=== PATIENT | male | born 1970 | race Caucasian/White ===

== ENCOUNTER 2016-06-27 11:42 | Day surgery (SDC) | payer OTHER ==
[2016-06-22 09:13] LABS: HEMOGLOBIN 14.2 g/dL (13.6-17.8)
--- NOTE | ~2016-06-27 | OP ---
Record Of Operation [facility] [address] [place]. [address] NAME: KOLTON CUNNINGHAM : 68 STATUS : [facility] UNIT#: [id number] AGE: 45 ADM/REG DATE : 06/27/16 MR#: [id number] REPORT SERV DATE: 06/27/16 DICTATED BY: Bambi TYLER DATE: 06/27/16 REPORT STATUS : Draft TRANSCRIBED BY: [employer] DATE: 06/27/16 DATE OF PROCEDURE: 06/27/2016 PREOPERATIVE DIAGNOSES: 1. Basal cell carcinoma of the left upper forehead. 2. Lesion of the right malar cheek, uncertain behavior, rule out atypia. 3. Lesion of the right religion, uncertain behavior, rule out atypia. POSTOPERATIVE DIAGNOSES: 1. Basal cell carcinoma of the left upper forehead. 2. Actinic keratosis with severe dysplasia, right malar cheek. 3. Actinic keratosis, right religion. PROCEDURE: 1. Excision of left upper forehead basal cell carcinoma with frozen section. 2. Reconstruction of left upper forehead defect with rotation flap closure. 3. Shaved excisional biopsy of right malar cheek lesion. 4. Shaved excisional biopsy of right religion lesion. FINDINGS: Left upper forehead 5 mm tall x 9 mm wide lesion requiring an 8 mm tall x 5 cm wide fusiform ellipse; frozen section showed margins free of tumor for left upper forehead; right malar cheek 4 mm crusted flat lesion; right religion 5 mm x 2 mm x 1 mm raised rough lesion. INDICATIONS: This is a 45-year-old gentleman has a biopsy-proven basal cell carcinoma of the left upper forehead. The pros and cons, alternatives, benefits, risks, limitations, and complications of excision with frozen section and reconstruction were discussed at length with the patient. He prefers general anesthesia over having this done in the office. We discussed the risks of scarring, reaction to suture, abnormal raising of the eyebrow, infection, recurrence of tumor, imponderables. He understands and wishes to proceed. Preoperatively, he also pointed out two lesions on the right side of his face, the right malar cheek and right religion which he is concerned about since they have been rough and irritated. We also plan to shave excise these with frozen section and do further excision and repair if cancerous. He understands and wishes to proceed. Proper consent obtained. No guarantees expressed. DESCRIPTION OF PROCEDURE: He was taken into the operating room and given general oral endotracheal anesthesia in the supine position. His face was prepped with Hibiclens and saline followed by isopropyl alcohol. None of these solutions got in his eyes. The sterile drapes were applied. The wrinkles on the left forehead were marked with a marking pen and then the lesion of the left upper forehead was marked out with a marking pen and then a 2.5 mm margin of safety around this was marked out. A long fusiform ellipse was then created to encompass this lesion with margins, following paralleling the natural skin creases in the forehead. The right malar cheek lesion and the right religion lesion measured as stated above. There Record Of Operation [facility] [address] [facility] [place]. [address] NAME: KOLTON CUNNINGHAM : 68 STATUS : [facility] UNIT#: [id number] AGE: 45 ADM/REG DATE : 06/27/16 MR#: [id number] REPORT SERV DATE: 06/27/16 DICTATED BY: Bambi TYLER DATE: 06/27/16 REPORT STATUS : Draft TRANSCRIBED BY: ESMER DATE: 06/27/16 were marked with marking pen. They were injected with 1% Xylocaine with 1:100,000 epinephrine and the left forehead was injected with the same solution. A left supraorbital nerve block was accomplished with 0.5% Marcaine with 1:200,000 epinephrine. The left upper forehead fusiform ellipse was then excised with a #15 blade beveling it away from the tumor. The 12 o'clock position of the tumor was marked with a suture and the pathologist was brought into the room for orientation and to perform frozen sections. I also told him we would be sending two frozen sections from the right side of his face, the right malar cheek and the right religion. The pathologist performed frozen sections stating that there was basal cell with margins free of tumor on the left forehead. The right malar cheek and the right religion lesions were shave excised. They were properly labeled and given to the large animal husbandry technician to take them to the pathologist for frozen sections. While the frozen sections were being performed, the left upper forehead was reconstruct. An inferior flap was developed in the subcutaneous plane with Garfield needle tip cautery for flap elevation and for hemostasis. This was done above the level of the frontalis muscle. This flap was rotated into place and secured with 5-0 Vicryl deep and 6-0 Prolene on the skin. The frozen sections on the right face returned showing the right malar cheek to be actinic keratosis with severe dysplasia but no obvious carcinoma, the right religion with actinic keratosis also, both of these areas were widely cauterized and then Mastisol and paper tape were applied. Mastisol and paper tape were applied to the left forehead and multiple layers to splint the wound and prevent motion. He was awakened and extubated and taken to the recovery room in good condition having tolerated the procedure well. Home going instructions include keeping the tape dry and intact and rechecking in the office in 7 days. Prescriptions were written for hydrocodone 7.5 mg/325 APAP #25, one p.o. q.4-6 hours p.r.n. pain; generic Zofran 8 mg ODT #6 one dissolved orally q.6 hours p.r.n. nausea or vomiting; cephalexin 500 mg #20 one p.o. b.i.d. until all taken, labeled antibiotic. RAMANL/MODL Bambi Tyler M.D. / [id number] CC: Yunior Cancino M.D.
[~2016-06-27 11:42] MED LIST: ASAB PO
== END 2016-06-27 19:19 | disposition home or self-care (01) ==
LOC: SDC 11:42
PROVIDERS: Specialist
PROC: 0HB1XZZ Excision of Face Skin, External Approach (ICD-10-PCS; 2016-06-27)
PROC: 0HX1XZZ Transfer Face Skin, External Approach (ICD-10-PCS; principal; 2016-06-27 13:15)
DX: C44.319 Basal cell carcinoma of skin of other parts of face (principal); L57.0 Actinic keratosis; E78.5 Hyperlipidemia, unspecified; E78.00 Pure hypercholesterolemia, unspecified; Z79.82 Long term (current) use of aspirin; Z79.899 Other long term (current) drug therapy; Z98.890 Other specified postprocedural states
CPT/HCPCS: 85014; 85018; 88305; 88331; A9270-GY; C1894; J0690; J2250; J2405; J2710; J3010